=== PATIENT | male | born 1950 | race Caucasian/White ===

== ENCOUNTER 2023-05-11 12:41 | Emergency (ER) | payer MEDICARE, SELFPAY ==
[2023-05-11 12:42] VITALS: BP 152/77; PULSE 62; RESP 16; TEMP 36.4; O2SAT 99; BMI 27.8
--- NOTE | 2023-05-11 13:06 | ED.RN ---
patient has had several episodes over the past few months of dizziness, diaphoresis, nausea, and weakness. patient states he had a near syncopal episode today with these symptoms but now symptoms have completely resolved. only other complaint is several episodes of vomiting after eating over the past few weeks.
--- NOTE | 2023-05-11 13:33 | EKG12_ITS ---
Test Reason : SYNCOPE Blood Pressure : / mmHG Vent. Rate : 060 BPM Atrial Rate : 060 BPM P-R Int : 202 ms QRS Dur : 118 ms QT Int : 472 ms P-R-T Axes : 000 016 042 degrees QTc Int : 472 ms Normal sinus rhythm Non-specific intra-ventricular conduction delay Minimal voltage criteria for LVH, may be normal variant ( Johnathon product ) Nonspecific ST and T wave abnormality Prolonged QT Abnormal ECG Confirmed by KATT MAX, BECKY ([id number]), development editor OLIVIA ROME ([id number]) on 05/22/2023 8:44:36 AM Referred By: MELISSA/MADDIE Confirmed By:BECKY BOLIVAR MD
--- NOTE | 2023-05-11 13:34 | EDS_ITS ---
HPI History of Present Illness Chief Complaint: Syncope Informant: patient, spouse/S.O. and family Narrative Narrative: 72-year-old male was shopping today when he suddenly began to feel lightheaded's became sweaty and pale and felt like he was going to pass out. He went outside and began to feel better but also nauseated. States over the past couple weeks has had several episodes where he is felt this way and did have some vomiting after the symptoms began. He denies any Heart palpitations but does note a chest pressure during the event. He states he takes losartan for hypertension. Today's episode lasted about 10 to 15 minutes. He states in between episodes he feels perfectly back to normal. [facility] Medical History Hypertension Allergy/AdvReac Type Severity Reaction Status Date / Time No Known Allergies Allergy Verified 05/11/23 12:44 Social History Smoking Status: Never smoker ROS ROS ED Constitutional Constitutional ED: Denies chills or weight loss Eyes Eyes: Denies change in vision or diplopia ENT ENT ED: Denies ear pain, rhinorrhea or sore throat Cardiovascular Cardiovascular: Reports other Details: Near syncope lightheadedness ; Denies chest pain, orthopnea, palpitations or racing heartbeat Respiratory/Chest Respiratory/Chest: Denies cough, dyspnea or orthopnea Gastrointestinal Gastrointestinal: Reports nausea and vomiting; Denies abdominal pain or diarrhea Genitourinary Genitourinary ED: Denies dysuria, hematuria or urinary frequency Musculoskeletal Musculoskeletal: Denies arthralgias or myalgias Integumentary Denies abscess or rash Neurologic Neurologic: Denies headache(s) or weakness Psychiatric Psychiatric: Denies anxiety, depression, suicidal ideation or suicidal thoughts Endocrine Endocrinology: Denies polydipsia, polyphagia or polyuria Allergic/Immunologic Allergic/Immunologic ED: Denies mouth swelling, tongue swelling or urticaria EXAM Physical Exam Const Vital Signs: 05/11/23 12:42 05/11/23 13:05 05/11/23 14:42 Temperature 97.5 F L Temperature Source Temporal Pulse Rate 62 64 Respiratory Rate 16 15 Respiratory Effort Normal Respiratory Pattern Normal Blood Pressure 152/77 H 177/83 H Blood Pressure Mean 102 114 Pulse Ox 99 95 Oxygen Delivery Method Room Air Room Air 05/11/23 16:00 05/11/23 16:52 Temperature Temperature Source Pulse Rate 65 66 Respiratory Rate 17 20 H Respiratory Effort Respiratory Pattern Blood Pressure 165/75 H 165/75 H Blood Pressure Mean 105 105 Pulse Ox 98 98 Oxygen Delivery Method Room Air Positive well nourished and well developed General Appearance ED: well developed HEENT Reports normocephalic, head/scalp atraumatic and moist mucous membranes Eyes PERRL and EOMs intact bilaterally Neck no lymphadenopathy, supple and no JVD Resp normal respiratory effort and clear to auscultation bilaterally Cardio regular rate, regular rhythm and no murmurs GI normal to inspection, nondistended, normoactive bowel sounds and non-tender Palpation: soft Back/Spine no CVA tenderness and normal ROM Extremity normal to inspection General Extremety ED: Negative for edema General Extremity: Negative for edema Neuro oriented x3 and CN's II-XII intact bilaterally Sensorium / Orientation: alert Motor Exam: strength 5/5 throughout Psych mental status grossly normal Mood & Affect: Negative for depressed or tearful Skin no rashes or lesions noted and no wounds MDM MDM MDM Narrative Medical decision making narrative: White count 8.9 with a hemoglobin of 9.8. Creatinine today is 4.74 with a BUN of 54. Troponin is 19. The anemia may be chronic and related to the renal disease. Patient does not recall what his prior creatinine is. recalls them speaking about his kidney function but has not seen a jr. java developer. He is supposed to see his doctor in May. My independent interpretation of the plain films of the chest is no acute process. Patient's had no events on the monitor. I have been unable to obtain old records from [facility] to be able to compare today's creatinine. At this point patient had an episode of near syncope in the setting of tube 3 prior events in the past few weeks. He may need to have Holter monitor. As if there is a cardiac dysrhythmia because it is intermittent. I am not sure that 24-hour inpatient observation is needed at this point. Above was discussed with family and the patient. He will be discharged home to arrange follow-up. He was asked specifically to inquire about prior kidney function as well as Holter monitor. Lab Data Attestation: I reviewed the patient's lab results. Labs: Laboratory Results - last 24 hr 05/11/23 13:40 WBC 8.9 RBC 3.31 L Hgb 9.8 L Hct 27.7 L MCV 83.7 MCH 29.6 MCHC 35.4 RDW Std Deviation 41.0 RDW Coeff of [place] 13.4 Plt Count 242 MPV 10.0 Immature Gran % (Auto) 0.300 Neut % (Auto) 74.4 H Lymph % (Auto) 11.3 L [place] % (Auto) 11.8 H Eos % (Auto) 1.5 Baso % (Auto) 0.7 Absolute Neuts (auto) 6.6 Absolute Lymphs (auto) 1.00 Nucleated RBC % 0 Sodium 142 Potassium 3.5 Chloride 109 H Carbon Dioxide 25.0 Anion Gap 8 BUN 54 H Creatinine 4.74 H Estim Creat Clear Calc 13.36 Est GFR (MDRD) Af Amer 16 L Est GFR (MDRD) Non-Af 13 L BUN/Creatinine Ratio 11.4 Glucose 84 Calcium 8.0 L Total Bilirubin 0.50 AST 12 L ALT 10 L Alkaline Phosphatase 117 Troponin I High Sens 19 Total Protein 6.7 Albumin 2.8 L Globulin 3.9 Albumin/Globulin Ratio 0.7 L Radiography Diagnostic Testing: Clinical Impression(s) from Imaging Studies Chest X-Ray 05/11/23 13:45 IMPRESSION: No acute abnormalities. Electronically Signed: Neel Ferreira MD at 14:14 EST Reading Location ID and State: [address] [place] [address] , Service support , EKG Initial EKG: Attestation: I personally reviewed and interpreted this EKG as follows: Comments: Normal sinus rhythm with a ventricular rate of 60 bpm. Noted nonspecific intraventricular conduction delay. TX interval approaching first- degree block. Discharge Plan Triage Chief Complaint: Syncope ED Provider: Sd Stevens Dx/Rx/DC Orders Clinical Impression: Near syncope Instructions: ED Chronic Kidney Disease (CKD), ED Near-Fainting, Uncertain Cause Primary Care Provider: Terrence Mccullough Referrals: Terrence Mccullough MD [Primary Care Provider] - As soon as possible Activity Restrictions/Additional Instructions: Please follow-up with your primary care doctor. Please advise them of your ED visit and have them review your labs. Your hemoglobin today is 9.8. Creatinine is 4.74. As discussed you may need a Holter monitor. Should you lose consciousness or have increased episodes or new symptoms please return to the emergency department. Disposition Disposition: Home, Self Care Discharge Date/Time: 05/11/23 16:58
--- NOTE | 2023-05-11 13:45 | RAD_ITS ---
STUDY: X-RAY CHEST REASON FOR EXAM: Male, 72 years old. Near syncope TECHNIQUE: Single AP portable view of the chest. COMPARISON: None. FINDINGS: EKG electrodes are seen. The lungs are clear and expanded. There is no demonstrated pleural abnormality. Normal size heart. Normal mediastinum and senia. Normal visualized pulmonary arteries. There is atherosclerotic tortuosity of the aortic arch and descending thoracic aorta. There are diffuse degenerative changes of the visualized thoracic spine. Normal visualized ribs, clavicles, and shoulders. There is no demonstrated abnormality of the visualized soft tissue structures of the upper abdomen. RAD/Chest 1 View (Portable) IMPRESSION: No acute abnormalities. Electronically Signed: Neel Ferreira MD at 14:14 EST ,
[2023-05-11 13:59] LABS: Absolute Neutrophil Count 6.6 X10^3/uL (2.0-7.7); Basophil# 0.06 X10^3/uL; Basophil% 0.7 % (0-1); Eosinophil# 0.13 X10^3/uL; Eosinophils% 1.5 % (0-5); Hematocrit 27.7 % (40-54); Hemoglobin 9.8 g/dL (13.0-16.5); Lymphocyte % 11.3 % (19-41); Mean Corp Hgb Conc 35.4 g/dL (32-36); Mean Corpuscular Hgb 29.6 pg (27.0-32.0); Mean Corpuscular Volume 83.7 fL (80-94); Monocyte# 1.05 X10^3/uL; Monocyte% 11.8 % (0-10); NRBC Flagged by Analyzer 0 % (0-5); Neutrophil % 74.4 % (47-70); Platelet Count 242 K/mm3 (150-450); RBC Distribution Width CV 13.4 % (11.6-14.6); Red Blood Count 3.31 M/mm3 (4.6-6.2); White Blood Count 8.9 K/mm3 (4.4-11.0)
[2023-05-11 14:14] LABS: ALB/GLOB Ratio 0.7 RATIO (0.9-2.4); AST(SGOT) 12 U/L (15-37); Alanine Aminotransfer ALT/SGPT 10 U/L (16-61); Albumin, Serum 2.8 g/dL (3.2-5.0); Alkaline Phosphatase 117 U/L (45-117); Anion Gap 8 (5-15); BUN 54 mg/dL (7-18); BUN/Creat Ratio 11.4 RATIO (10-20); Chloride 109 mmol/L (98-107); Creatinine, Serum 4.74 mg/dL (0.70-1.30); EST Glomerular Filtration Rate 13 mL/min (>60); Est Glom Filt Rate - Afr Amer 16 mL/min (>60); Estimated Creatinine Clearance 13.36 ml/min; Globulin 3.9 g/dL (2.2-4.2); Glucose 84 mg/dL (74-106); Potassium 3.5 mmol/L (3.5-5.1); Protein, Total 6.7 g/dL (6.4-8.2); Sodium Level 142 mmol/L (136-145); Troponin-I HS 19 pg/mL (3.0-78.0)
[2023-05-11 14:42] VITALS: BP 177/83; PULSE 64; RESP 15; O2SAT 95
--- NOTE | 2023-05-11 15:13 | NURSING ---
ATTEMPTED TO REACH DR DINORA LENZ
--- NOTE | 2023-05-11 15:14 | NURSING ---
FAXED RELEASE OF INFO TO [facility]
[2023-05-11 16:00] VITALS: BP 165/75; PULSE 65; RESP 17; O2SAT 98
[2023-05-11 16:52] VITALS: BP 165/75; PULSE 66; RESP 20; O2SAT 98
== END 2023-05-11 16:58 | disposition home or self-care (01) ==
PROVIDERS: Emergency Provider Emergency Medicine; PCP Family Medicine; Visit Provider Emergency Medicine
DX: R55 Syncope and collapse (principal); R07.89 Other chest pain; I10 Essential (primary) hypertension; Z79.899 Other long term (current) drug therapy
CPT/HCPCS: 71045; 80053; 84484; 85025; 93005; 99284